=== PATIENT | female | born 1980 | race Caucasian/White ===

== ENCOUNTER 2016-04-09 13:46 | Emergency (ER) | payer OTHER | END 2016-04-09 17:30 | disposition home or self-care (01) | LOC: ER1 13:46 | DX: S13.9XXA Sprain of joints and ligaments of unspecified parts of neck, initial encounter (principal); R51 Headache; R59.0 Localized enlarged lymph nodes; F17.200 Nicotine dependence, unspecified, uncomplicated; Z90.49 Acquired absence of other specified parts of digestive tract; Z88.1 Allergy status to other antibiotic agents; Z79.899 Other long term (current) drug therapy | CPT/HCPCS: 36415; 70450; 72125; 96372; 96374; 96375; 99284; J1100; J2270; J2405 ==

== ENCOUNTER 2020-06-28 21:59 | Emergency (ER) | payer OTHER ==
[2020-06-29 01:25] LABS: HEMOGLOBIN 13.3 gm/dl (12.3-15.3); RED BLOOD COUNT 4.39 M/UL (4.00-5.10); WHITE BLOOD COUNT 14.8 K/UL (4.5-11.0)
[2020-06-29 01:44] LABS: BUN/CREATININE RATIO 9 (0-10)
[2020-06-29] MEDS ORDERED: AUGMENTIN 875-1 EACH PO (03:40)
== END 2020-06-29 03:54 | disposition home or self-care (01) ==
LOC: ER1 21:59
PROVIDERS: Family Medicine
DX: J02.9 Acute pharyngitis, unspecified (principal); R59.0 Localized enlarged lymph nodes
CPT/HCPCS: 70491; 80048; 85025; 87081; 87880; 96374; 96375; 99283; J1885; J2930; Q9967